=== PATIENT | male | born 1945 | race Hispanic/Latino ===

== ENCOUNTER 2018-10-18 05:51 | Day surgery (SDC) | payer OTHER ==
[2018-10-16 13:27] VITALS: BP 115/69
[2018-10-16 13:42] LABS: BASOPHILS % (AUTO) 0.7 % (0.0-5.0); EOSINOPHILS % (AUTO) 2.1 % (0.0-8.0); HEMATOCRIT 38.2 % (42-54); LYMPHOCYTES % (AUTO) 11.9 % (21.0-51.0); MEAN CORPUSCULAR HEMOGLOBIN 31.3 pg (27.0-33.0); MEAN CORPUSCULAR HGB CONC 32.9 g/dL (32.0-36.0); MEAN CORPUSCULAR VOLUME 95.1 fL (79-99); MONOCYTES % (AUTO) 6.6 % (3.0-13.0); NEUTROPHILS % (AUTO) 78.7 % (40.0-77.0); NUCLEATED RED BLOOD CELLS 0.1 % (0.0-0.19); PLATELET COUNT (AUTO) 211 K/uL (130-400); RED BLOOD CELL COUNT(AUTO) 4.01 MIL/uL (4.50-6.20); RED CELL DISTRIBUTION WIDTH 14.8 % (11.0-15.5); WHITE BLOOD COUNT (AUTO) 8.2 K/uL (4.8-10.8)
[2018-10-16 13:49] LABS: CREATININE 1.4 mg/dL (0.5-1.5); POTASSIUM 4.7 mmol/L (3.5-5.1)
[2018-10-16 14:12] LABS: INR 1.18 (0.85-1.15); PARTIAL THROMBOPLASTIN TIME 29.9 SEC (26.3-35.5)
[2018-10-18] VITALS (8 sets, daily range): BP systolic 104–129; BP diastolic 54–79
[~2018-10-18] VITALS: Ht 170.2 cm; Wt 98.0 kg
[~2018-10-18 05:51] MED LIST: APIX5TAB PO; ASPI-1181 PO; ATOR-2 PO; CYANOCOBALAMIN PO; FEROUS SULFATE PO; FOLI1TAB15 PO; METF-446 PO; METO100T14 PO; MULT1CAP PO; PIRF267C PO
[2018-10-18] MEDS ORDERED: SODIUM CHLORIDE 0.9% 1000ML 1,000 ML IV ONE (06:03)
--- NOTE | 2018-10-18 06:32 | NUR ---
SKIN HX PSORIASIS , DRY SKIN PATCHES ALL OVER BODY,
[2018-10-18] MEDS ORDERED: MIDAZOLAM HCL 1 MG/ML 2ML VIAL ONE ×3 (07:22→08:57)
[2018-10-18] MEDS ORDERED: MEPERIDINE-PF 25 MG/ML SYG ONE ×3 (07:23→08:57)
[2018-10-18] MEDS ORDERED: LIDOCAINE HCL 2% 20ML ONE (07:23)
--- NOTE | 2018-10-18 07:35 | NUR ---
PROCEDURE PT TAKEN TO B[facility] AND [employer] VIA BED FOR PROCEDURE. SPOUSE AT BEDSIDE.
[2018-10-18] MEDS ORDERED: SODIUM CHLORIDE 0.9% 1000ML 1,000 ML IV SCH (08:00)
[2018-10-18] MEDS ORDERED: HEPARIN SODIUM 1000UNIT/ML 10ML VIAL ONE (08:03)
[2018-10-18] MEDS ORDERED: GLUCAGON 1MG KIT 1 MG ML IM PRN (10:15)
[2018-10-18] MEDS ORDERED: DEXTROSE 50%-WATER 50 ML DISP.SYRIN IV PRN (10:15)
--- NOTE | 2018-10-18 10:30 | NUR ---
POST RECEIVED PT FROM MANAGER PRIVATE, S/P AFL[employer]TER [employer]BLATION , RIGHT GROIN DRESSING DRY AND INTACT, SEE POST CATH ASSESSMENT. PT AWAKE AND ALERT IN BED, NO DISTRESS NOTED. DENIES ANY PAIN OR DISCOMFORTS. INSTRUCTED PATIENT TO KEEP BEDREST FOR 3 HRS. PLAN OF CARE DISCUSS WITH PT / SPOUSE
[2018-10-18] MEDS ORDERED: INSULIN HUMULIN R 100 UNIT/ML 3ML SQ SCH (11:30)
--- NOTE | 2018-10-18 12:54 | NUR ---
DC DC INSTRUCTIONS GIVEN TO PT'S SPOUSE , INSTRUCTED TO F/U WITH DR. VEMRA. RIGHT GROIN DRESSING DRY INTACT, NO BLEEDING, HEMATOMA NOTED.
--- NOTE | 2018-10-18 13:10 | NUR ---
PATIENT PT WAS ASSISTED TO RESTROOM, THEN WAS CALLED IN BY SPOUSE THAT PATIENT WAS BLEEDING FROM RIGHT GROIN AREA. PT ASSISTED BACK IN BED. MINIMAL BLEEDING NOTED TO RIGHT GROIN, SMALL LEMON SIZE HEMATOMA NOTED TO SITE. PRESSURE APPLIED TO AREA FOR ABOUT 10 MIN. AFTER MANUAL PRESSURE NO BLEEDING NOTED TO RIGHT PUNCTURE SITE . DR. VERMA WAS NOTIFIED , ORDERS RECEIVED TO KEEP PATIENT 1 HOUR AND MONITOR HEMATOMA FOR INCREASE IN SIZE OR BLEEDING. PT INSTRUCTED TO KEEP IN BED , WILL CONTINUE TO MONITOR.
--- NOTE | 2018-10-18 14:15 | NUR ---
ASSESS RIGHT GROIN DRESSING DRY AND INTACT, NO BLEEDING NOTED. SAME HEMATOMA NOTED. NO CHANGES. NO BRUISING NOTED TO AREA. PT AWAKE AND ALERT, DENIED ANY PAIN OR DISCOMFORTS. NEUROVASCULAR CHECKS WNL
--- NOTE | 2018-10-18 14:25 | NUR ---
DC PT DC HOME VIA WC, NO DISTRESS NOTED. DENIES ANY PAIN OR DISCOMFORTS. ACCOMPANIED BY SPOUSE
== END 2018-10-18 14:25 | disposition home or self-care (01) ==
LOC: DAH 05:51
PROVIDERS: ATTEND Internal Medicine Cardiovascular Disease
DX: I48.3 Typical atrial flutter (principal); I25.10 Atherosclerotic heart disease of native coronary artery without angina pectoris; Z95.1 Presence of aortocoronary bypass graft; E11.9 Type 2 diabetes mellitus without complications; I10 Essential (primary) hypertension; Z79.899 Other long term (current) drug therapy; Z98.890 Other specified postprocedural states; E78.5 Hyperlipidemia, unspecified; J84.10 Pulmonary fibrosis, unspecified; K21.9 Gastro-esophageal reflux disease without esophagitis; Z87.891 Personal history of nicotine dependence; Z79.84 Long term (current) use of oral hypoglycemic drugs; Z79.01 Long term (current) use of anticoagulants
CPT/HCPCS: 36415; 80048; 82948 ×2; 85025; 85610; 85730; 93005; 93613; 93621; 93653; A4649; C1730 ×2; C1732; C1894 ×2; J1644 ×2; J2175 ×3; J2250 ×3; J3490; J7030; 99156; 99157